=== PATIENT | female | born 1995 | race Caucasian/White ===

== ENCOUNTER 2025-02-17 10:38 | Inpatient (IN) | payer OTHER ==
[~2025-02-17] VITALS: Ht 170.2 cm; Wt 55.5 kg
[2025-02-17 11:39] LABS: HEMATOCRIT 42.9 % (36.0-47.0); HEMOGLOBIN 14.6 g/dl (12.0-15.5); MEAN CORPUSCULAR HEMOGLOBIN 31.3 pg (27.0-33.0); MEAN CORPUSCULAR VOLUME 92.1 fl (80.0-96.0); PLATELET COUNT, AUTOMATED 308 10^3/uL (150-450); RED BLOOD COUNT 4.66 10^6/uL (4.00-5.40); WHITE BLOOD COUNT 13.1 10^3/uL (4.0-10.0)
[2025-02-17 12:00] LABS: AMPHETAMINES LEVEL URINE NEGATIVE (NEGATIVE); BARBITURATES URINE NEGATIVE (NEGATIVE); BENZODIAZEPINES URINE NEGATIVE (NEGATIVE); COCAINE METABOLITE URINE NEGATIVE (NEGATIVE); METHADONE URINE NEGATIVE (NEGATIVE); OPIATES URINE NEGATIVE (NEGATIVE); PHENCYCLIDINE URINE NEGATIVE (NEGATIVE)
[2025-02-17 12:01] LABS: CANNABINOIDS URINE POSITIVE (NEGATIVE)
[2025-02-17 12:03] LABS: ETHYL ALCOHOL (ETHANOL) < 0.003 % (0.000-0.010); HCG, SERUM QUALITATIVE NEGATIVE (NEGATIVE)
[2025-02-17 12:05] LABS: ALBUMIN 4.5 G/DL (3.2-5.2); ALKALINE PHOSPHATASE 62 U/L (35-104); ALT/SGPT 19 U/L (7.0-40); AST/SGOT 18 U/L (<34); BILIRUBIN,DIRECT 0.3 MG/DL (<0.4); BILIRUBIN,TOTAL 0.8 MG/DL (0.3-1.2); BLOOD UREA NITROGEN 6 MG/DL (9-23); CALCIUM LEVEL 9.6 MG/DL (8.5-10.1); CARBON DIOXIDE LEVEL 26 MMOL/L (20-31); CHLORIDE LEVEL 105 MMOL/L (98-107); CREATININE FOR GFR 0.54 MG/DL (0.55-1.30); GLOMERULAR FILTRATION RATE > 90.0 (>60); GLUCOSE, FASTING 140 MG/DL (60-100); POTASSIUM SERUM 3.9 MMOL/L (3.5-5.1); SALICYLATE LEVEL < 3.0 MG/DL (<30); SODIUM LEVEL 143 MMOL/L (136-145); TOTAL PROTEIN 7.4 G/DL (5.7-8.2)
[2025-02-17 12:06] LABS: THYROID STIMULATING HORMONE 0.534 uIU/ML (0.55-4.78)
[2025-02-17] MEDS ORDERED: PARO20TA4 PO (13:53)
[2025-02-17] MEDS ORDERED: HOME MED LIST COMPLETE! XX SCH (13:55)
[2025-02-17] MEDS ORDERED: MOM 30ML SUSPENSION UDC PO PRN (16:55)
[2025-02-17] MEDS ORDERED: MAALOX 30 ML SUSP *UDC PO PRN (16:55)
[2025-02-17] MEDS ORDERED: ACETAMINOPHEN 325 MG TAB PO PRN (16:55)
[2025-02-17] MEDS ORDERED: OLANZapine 5 MG TAB PO PRN (16:55)
[2025-02-17] MEDS ORDERED: traZODone 50 MG TAB PO PRN (16:55)
[2025-02-17 17:43] VITALS: BP 134/82; TEMP 97.8
[2025-02-18 06:26] VITALS: BP 144/92; TEMP 97; O2SAT 99
[2025-02-18] MEDS: IBUPROFEN 400MG TAB PO PRN (07:37)
[2025-02-18] MEDS: PARoxetine 20MG TABLET PO SCH (08:18)
[2025-02-18 09:01] LABS: THYROXINE (T4) 8.5 UG/DL (4.5-10.9)
[2025-02-18 15:13] VITALS: BP 117/72; TEMP 98.2; O2SAT 99
[2025-02-18] MEDS: OLANZapine 5 MG TAB PO SCH (20:06)
[2025-02-18] MEDS: diphenhydrAMINE 25MG CAP PO PRN (20:08)
[2025-02-19 06:32] VITALS: BP 123/84; TEMP 97.6; O2SAT 98
[2025-02-19] MEDS: OLANZapine ORAL DISINTEGRATING TAB 5MG PO ONE (09:10)
[2025-02-19 15:25] VITALS: BP 130/78; TEMP 97.4; O2SAT 100
[2025-02-20 06:24] VITALS: BP 121/74; TEMP 97.9; O2SAT 99
[2025-02-20 15:48] VITALS: BP 122/74; TEMP 97.3; O2SAT 99
[2025-02-21 06:25] VITALS: BP 117/56; TEMP 97; O2SAT 98
[2025-02-21 15:53] VITALS: BP 134/80; TEMP 97.9; O2SAT 99
[2025-02-22 06:34] VITALS: BP 121/74; TEMP 98.2; O2SAT 100
[2025-02-22] MEDS ORDERED: HYDR-4570 PO (10:57)
[2025-02-22] MEDS ORDERED: OLAN1TAB16 PO (10:57)
== END 2025-02-22 13:07 | disposition home or self-care (01) | DRG 751 ==
LOC: M ED 10:38 → M ED INP 16:30 → M PSY 17:13
PROVIDERS: ADMIT Psychiatry & Neurology Psychiatry; ATTEND Psychiatry & Neurology Psychiatry
DX: F29 Unspecified psychosis not due to a substance or known physiological condition (principal); F41.9 Anxiety disorder, unspecified; F12.10 Cannabis abuse, uncomplicated; F17.200 Nicotine dependence, unspecified, uncomplicated; Z79.899 Other long term (current) drug therapy